=== PATIENT | female | born 1965 | race Caucasian/White ===

== ENCOUNTER 2018-02-21 09:35 | Emergency (ER) | payer MEDICAID ==
[2018-02-21 10:57] VITALS: BP 131/74
--- NOTE | 2018-02-21 11:17 | EDM.PDOC ---
ED HPI GENERAL MEDICAL PROBLEM - General Chief Complaint: Wound Recheck Stated Complaint: HAD BACK SURG 02/01 ;LEAKING FLUID FROM SITE Time Seen by Provider: 02/21/18 11:11 Source of Information: Reports: Patient, Family - History of Present Illness INITIAL COMMENTS - FREE TEXT/NARRATIVE: Had spine surgery on 02/01/18. Noted drainage from her back wound yesterday suddenly. Was yellow in color. No fever or chills. Onset: Today Duration: Getting Worse Location: Reports: Back Quality: Reports: Same as Previous Episode Severity: Moderate Improves with: Reports: None Worsens with: Reports: Movement Context: Reports: Other (post op) Associated Symptoms: Reports: No Other Symptoms Treatments POULTRY CUTTER: Reports: Other (see below) - Related Data Allergies Allergy/AdvReac Type Severity Reaction Status Date / Time dextromethorphan Allergy Hives Verified 02/21/18 11:01 [From Desgen] guaifenesin [From Desgen] Allergy Hives Verified 02/21/18 11:01 phenylephrine [From Desgen] Allergy Hives Verified 02/21/18 11:01 acetaminophen AdvReac Hallucinati Verified 02/21/18 11:01 [From Tylenol-Codeine #3] ons codeine AdvReac Hallucinati Verified 02/21/18 11:01 [From Tylenol-Codeine #3] ons Home Meds: Home Meds Albuterol [Ventolin HFA] 1 inh INH 5XDAY PRN 09/26/16 [History] Past Medical History Respiratory History: Reports: Asthma Gastrointestinal History: Reports: GERD Neurological History: Reports: Head Trauma, Migraines - Past Surgical History HEENT Surgical History: Reports: Tonsillectomy GI Surgical History: Reports: Hernia, Abdominal, Hernia, Inguinal, Servando Fundoplication Female Surgical History: Reports: Hysterectomy Musculoskeletal Surgical History: Reports: Arthroscopic Knee, Shoulder Surgery Social & Family History - Tobacco Use Smoking Status *Q: Current Some Day Smoker Years of Tobacco use: 7 Packs/Tins Daily: 0.1 - Caffeine Use Caffeine Use: Reports: Energy Drinks, Soda ED ROS GENERAL - Review of Systems Review Of Systems: See Below Constitutional: Reports: No Symptoms HEENT: Reports: No Symptoms Respiratory: Reports: No Symptoms Cardiovascular: Reports: No Symptoms GI/Abdominal: Reports: No Symptoms Musculoskeletal: Reports: Back Pain Skin: Reports: Other (wound to back with weeping and opening.) Neurological: Reports: Numbness (right lower leg) Psychiatric: Reports: No Symptoms Hematologic/Lymphatic: Reports: No Symptoms Immunologic: Reports: No Symptoms ED EXAM, SKIN/RASH Exam: See Below Exam Limited By: No Limitations General Appearance: Alert, WD/WN, No Apparent Distress Respiratory/Chest: No Respiratory Distress, Lungs Clear, Normal Breath Sounds, No Accessory Muscle Use, Chest Non-Tender Cardiovascular: Normal Peripheral Pulses, Regular Rate, Rhythm, No Edema, No Gallop, No JVD, No Murmur, No Rub Back Exam: Normal Inspection, Other (small opening to lower surgical site, with yellow drainage.) Skin: Other (dressing removed. New dressing with 4x4s and gauze applied.) Location, Skin: Back Lymphatic: No Adenopathy Course - Vital Signs Last Recorded V/S: Last Vital Signs Temp 97.5 F 02/21/18 11:07 Pulse 82 02/21/18 11:07 Resp 16 02/21/18 11:07 BP 131/74 02/21/18 11:07 Pulse Ox 100 02/21/18 11:07 - Orders/Labs/Meds Orders: Active Orders 24 hr Category Date Time Status CULTURE WOUND + SMEAR [RM] Stat Lab 02/21/18 11:27 Ordered Departure - Departure Time of Disposition: 11:20 Disposition: Home, Self-Care 01 Condition: Good Clinical Impression: Wound infection after surgery Qualifiers: Encounter type: initial encounter Qualified Code(s): T81.4XXA - Infection following a procedure, initial encounter - Discharge Information Instructions: Wound Infection, Ifse-[id number], How to Change Your Dressing, Easy- to-Read Referrals: Lavelle Mir NP [Primary Care Provider] - Forms: ED Department Discharge Additional Instructions: Wound culture obtained from opening. Will forward results to the surgeon. Cephalexin 500mg TID x 10 days. To change dressing daily. To followup with spine surgeon in AM for evaluation. Discussed pain management and expectations post op. Should discuss this with her surgeon. Consider ice, TENS unit and Ibuprofen as needed. - Problem List & Annotations (1) Wound infection after surgery SNOMED Code(s): 86579283, 167637062 Code(s): T81.4XXA - INFECTION FOLLOWING A PROCEDURE, INITIAL ENCOUNTER Status: Acute Priority: Low Current Visit: Yes Qualifiers: Encounter type: initial encounter Qualified Code(s): T81.4XXA - Infection following a procedure, initial encounter - My Orders Last 24 Hours: My Active Orders 02/21/18 11:27 CULTURE WOUND + SMEAR [RM] Stat - Assessment/Plan Last 24 Hours: My Active Orders 02/21/18 11:27 CULTURE WOUND + SMEAR [RM] Stat
== END 2018-02-21 12:04 | disposition home or self-care (01) ==
LOC: JP.ED 09:35
DX: T81.4XXA Infection following a procedure, initial encounter (principal); F17.210 Nicotine dependence, cigarettes, uncomplicated; Z88.8 Allergy status to other drugs, medicaments and biological substances; Z88.6 Allergy status to analgesic agent
CPT/HCPCS: 87070; 87077; 87186; 87205; 99284

== ENCOUNTER 2018-11-06 09:49 | Emergency (ER) | payer MEDICAID ==
[2018-11-06 10:11] VITALS: BP 126/68
[2018-11-06] MEDS ORDERED: HYDROmorphone 1 MG/ML Syringe IM ONE (10:59)
--- NOTE | 2018-11-06 11:06 | EDM.PDOC ---
ED HPI GENERAL MEDICAL PROBLEM - General Chief Complaint: Lower Extremity Injury/Pain Stated Complaint: SURGERY 11/04-HAVING PAIN Time Seen by Provider: 11/06/18 10:55 Source of Information: Reports: Patient, Family, RN Notes Reviewed History Limitations: Reports: No Limitations - History of Present Illness INITIAL COMMENTS - FREE TEXT/NARRATIVE: 53-year-old female presents emergency department today with postoperative pain, she recently had surgery to repair her gastrocnemius muscle states she is doing well she is postop day 3 she has a split cast in combination with an Darin wrap when she came in her toes were discolored Darin wrap was removed which provided significant pain relief by the time I examined her and evaluate her her pain is much better in control - Related Data Allergies Allergy/AdvReac Type Severity Reaction Status Date / Time dextromethorphan Allergy Hives Verified 05/07/18 08:32 [From Desgen] guaifenesin [From Desgen] Allergy Hives Verified 05/07/18 08:32 phenylephrine [From Desgen] Allergy Hives Verified 05/07/18 08:32 acetaminophen AdvReac Hallucinati Verified 05/07/18 08:32 [From Tylenol-Codeine #3] ons codeine AdvReac Hallucinati Verified 05/07/18 08:32 [From Tylenol-Codeine #3] ons Home Meds: Home Meds Albuterol [Ventolin HFA] 1 inh INH 5XDAY PRN 09/26/16 [History] Acetaminophen/oxyCODONE [Percocet 325-5 MG] 1 tab PO TID PRN #10 tab 11/06/18 [ Rx] Hydrocodone/Acetaminophen [Hydrocodon-Acetaminophn 10-325] 11/06/18 [History] Past Medical History Respiratory History: Reports: Asthma Gastrointestinal History: Reports: GERD Neurological History: Reports: Head Trauma, Migraines - Past Surgical History HEENT Surgical History: Reports: Tonsillectomy GI Surgical History: Reports: Hernia, Abdominal, Hernia, Inguinal, Servando Fundoplication Female Surgical History: Reports: Hysterectomy Musculoskeletal Surgical History: Reports: Arthroscopic Knee, Shoulder Surgery, Other (See Below) Other Musculoskeletal Surgeries/Procedures:: left leg surg. 11/04/18 Social & Family History - Tobacco Use Smoking Status *Q: Current Some Day Smoker Years of Tobacco use: 20 Packs/Tins Daily: 0.1 - Caffeine Use Caffeine Use: Reports: Energy Drinks, Soda Review of Systems - Review of Systems Review Of Systems: See Below Respiratory: Reports: No Symptoms Cardiovascular: Reports: No Symptoms GI/Abdominal: Reports: No Symptoms Musculoskeletal: Reports: Foot Pain ED EXAM, GENERAL - Physical Exam Exam: See Below Free Text/Narrative:: Examination of the foot it is casted with a split cast Darin wrap is removed I can appreciate the toes there good color good capillary refill there is no tenderness to palpation of the toes Exam Limited By: No Limitations General Appearance: Alert, WD/WN, No Apparent Distress Respiratory/Chest: No Respiratory Distress Course - Vital Signs Last Recorded V/S: Last Vital Signs Temp 96.8 F 11/06/18 10:20 Pulse 82 11/06/18 10:20 Resp 15 11/06/18 10:20 BP 126/68 11/06/18 10:20 Pulse Ox 94 L 11/06/18 10:20 - Orders/Labs/Meds Meds: Medications Discontinued Medications Generic Name Dose Route Start Last Admin Trade Name Jamal PRN Reason Stop Dose Admin Hydromorphone HCl 1 mg 11/06/18 10:59 Dilaudid IM 11/06/18 11:00 ONETIME ONE Departure - Departure Time of Disposition: 11:05 Disposition: Home, Self-Care 01 Condition: Fair Clinical Impression: Acute postoperative pain of left foot - Discharge Information Prescriptions: Acetaminophen/oxyCODONE [Percocet 325-5 MG] 1 tab PO TID PRN #10 tab PRN Reason: Pain Referrals: Lavelle Mir DRY CHAIN OPERATOR [Primary Care Provider] - Additional Instructions: Stop the hydrocodone at this time, change her pain control to oxycodone, please call your surgeon on Thursday and keep your follow-up appointment on Thursday, call return to the emergency department worsening of symptoms - Assessment/Plan Plan: Assessment Acuity = acute Site and laterality = foot pain left side postop day 3 gastrocnemius repair Etiology = suspicious for constriction from the Darin wrap overnight Manifestations = none Location of injury = Home Lab values = none Plan Her pain is much better controlled at this time with little intervention she was provided 1 mg Dilaudid IM and then change pain medication to Percocet 5/325 one tab by mouth 3 times a day when necessary total #10 faxed [facility] she does have follow-up with her surgeon on Thursday she will contact him on Thursday This note was dictated using [employer] voice recognition software please call with any questions on syntax or grammar.
== END 2018-11-06 11:47 | disposition home or self-care (01) ==
LOC: JP.ED 09:49
DX: G89.18 Other acute postprocedural pain (principal); F17.210 Nicotine dependence, cigarettes, uncomplicated; K21.9 Gastro-esophageal reflux disease without esophagitis; Z79.899 Other long term (current) drug therapy; Z88.8 Allergy status to other drugs, medicaments and biological substances; Z88.5 Allergy status to narcotic agent; Z98.890 Other specified postprocedural states
CPT/HCPCS: 96372; 99283; J1170

== ENCOUNTER 2023-10-03 12:38 | Emergency (ER) | payer MEDICARE, MEDICAID ==
[2023-10-03 12:51] VITALS: BP 101/83; PULSE 100
== END 2023-10-03 14:26 | disposition home or self-care (01) ==
LOC: JP.ED 12:38
DX: L03.116 Cellulitis of left lower limb (principal); J45.909 Unspecified asthma, uncomplicated; F17.210 Nicotine dependence, cigarettes, uncomplicated; Z90.710 Acquired absence of both cervix and uterus; Z88.8 Allergy status to other drugs, medicaments and biological substances; Z88.5 Allergy status to narcotic agent; Z88.6 Allergy status to analgesic agent; Z79.899 Other long term (current) drug therapy
CPT/HCPCS: 87070; 87088; 87186; 87205; 99283